=== PATIENT | male | born 1970 | race Caucasian/White ===

== ENCOUNTER 2019-09-08 16:23 | Emergency (ER) | payer OTHER, BC ==
[2019-09-08 16:29] VITALS: BP 135/91
[2019-09-08] MEDS ORDERED: IBUPROFEN 600 MG TABLET PO ONE (17:04)
[2019-09-08] MEDS ORDERED: METHOCARBAMOL 750 MG TABLET PO ONE (17:05)
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
== END 2019-09-08 17:45 | disposition home or self-care (01) ==
LOC: ER 16:23
DX: M25.512 Pain in left shoulder (principal); V59.40XA Driver of pick-up truck or van injured in collision with unspecified motor vehicles in traffic accident, initial encounter
CPT/HCPCS: 99283; 73000; J3490